=== PATIENT | female | born 1995 | race African-American/Black ===

== ENCOUNTER 2017-08-04 10:22 | Emergency (ER) | payer MEDICAID ==
[~2017-08-04] VITALS: Ht 165.1 cm; Wt 66.0 kg
[2017-08-04] MEDS ORDERED: SODIUM CHLORIDE 0.9% 1,000 ML IV ONE (10:34)
[2017-08-04] MEDS ORDERED: KETOROLAC 30MG/ML VIAL IV STA (10:34)
[2017-08-04 10:58] LABS: BASOPHILS % 0.5 % (0.0-2.0); EOSINOPHILS % 0.2 % (0.0-5.0); HEMATOCRIT. 32.6 % (36.0-48.0); HEMOGLOBIN. 10.8 g/dL (12.0-16.0); LYMPHOCYTES % 13.2 % (20.0-50.0); MEAN CORPUSCULAR HEMOGLOBIN 30.9 pg (28.0-32.0); MEAN CORPUSCULAR VOLUME 93.4 fL (81.0-99.0); MEAN PLATELET VOLUME 7.8 fl (7.4-10.4); MONOCYTES % 5.6 % (2.0-8.0); NEUTROPHILS % 80.5 % (40.0-76.0); PLATELET 331 x1000/uL (130-400); RED BLOOD CELL COUNT 3.49 mill/uL (4.2-5.4); RED CELL DISTRIBUTION WIDTH 16.5 % (11.6-14.6)
[2017-08-04 11:01] VITALS: BP 104/56
[2017-08-04 11:02] LABS: CLARITY URINE CLOUDY (CLEAR); COLOR URINE YELLOW (YELLOW); KETONES URINE TRACE (NEGATIVE); LEUKOCYTE ESTERASE URINE 2+ (NEGATIVE); NITRITE URINE NEGATIVE (NEGATIVE); OCCULT BLOOD URINE NEGATIVE (NEGATIVE); PH URINE 6.5 (4.5-8.0); PROTEIN URINE TRACE (NEGATIVE); SPECIFIC GRAVITY URINE 1.025 (1.005-1.030)
[2017-08-04 11:03] LABS: CHLORIDE 104 mEq/L (98-107)
[2017-08-04 11:07] LABS: INR 1.1; PROTHROMBIN TIME 11.7 sec (9.4-11.6)
[2017-08-04] MEDS ORDERED: METRONIDAZOLE 500MG TABLET PO ONE (11:30)
[2017-08-04] MEDS ORDERED: CEPHALEXIN 500MG CAPSULE PO ONE (11:30)
[2017-08-04 11:52] LABS: HCG SCREEN NEGATIVE
== END 2017-08-04 12:25 | disposition home or self-care (01) ==
LOC: ER 10:27
DX: N39.0 Urinary tract infection, site not specified (principal); A59.9 Trichomoniasis, unspecified; F17.200 Nicotine dependence, unspecified, uncomplicated; Z71.6 Tobacco abuse counseling
CPT/HCPCS: 36415; 80053; 81003; 83690; 84703; 85025; 85610; 87086; 99284; 99406; J1885; J7030; Z7610